=== PATIENT | male | born 1995 | race African-American/Black ===

== ENCOUNTER 2018-03-07 13:25 | Emergency (ER) | payer MEDICAID ==
[~2018-03-07] VITALS: Ht 177.8 cm; Wt 76.0 kg
[2018-03-07 13:58] VITALS: BP 115/67
== END 2018-03-07 16:30 | disposition left against medical advice (07) ==
LOC: ER 13:25
DX: Z53.21 Procedure and treatment not carried out due to patient leaving prior to being seen by health care provider (principal)